=== PATIENT | female | born 1950 | race Hispanic/Latino ===

== ENCOUNTER 2018-01-21 14:00 | Outpatient (CLI) | payer MEDICARE, OTHER ==
--- NOTE | 2018-01-22 07:22 | XRay Report ---
FINAL REPORT EXAM: XR SPINE CERVICAL 2-3V HISTORY: CERVICAL COMPARISONS: None FINDINGS: Three views of the cervical spine There is straightening of the cervical spine with reversal of normal lordosis centered at C5. Retrolisthesis of C5 on C6 is measures approximately 3 millimeters. There is mild intervertebral disc space narrowing at C5-C6 with moderate endplate spondylosis and endplate remodeling. Mild intervertebral disc space narrowing at C4-C5. Remaining vertebral body heights and intervertebral disc spaces are preserved. No acute fracture is suggested. Prevertebral soft tissues are within normal limits. Incomplete evaluation of the lung apices is unremarkable. IMPRESSION: Degenerative straightening, intervertebral disc space narrowing and endplate spondylosis in the cervical spine centered at C5-C6, as detailed above. Consider follow-up MRI. If there is concern for acute fracture, CT is recommended for more sensitive and specific evaluation.
--- NOTE | 2018-01-22 07:24 | XRay Report ---
FINAL REPORT EXAM: XR SPINE THORACIC 3V HISTORY: CERVICAL COMPARISONS: Cervical spine radiographs of the same date FINDINGS: AP and lateral views thoracic spine Thoracic kyphosis is within normal limits. Vertebral body heights intervertebral disc spaces are preserved. No fractures. Partially imaged curvature of the lumbar spine. Incomplete evaluation of the chest is unremarkable. IMPRESSION: Unremarkable thoracic spine radiographs. Partially imaged curvature of the lumbar spine.
== END 2018-01-21 14:01 | disposition home or self-care (01) ==
LOC: XRAY 14:00
PROVIDERS: ATTEND Internal Medicine
DX: M47.892 Other spondylosis, cervical region (principal); M40.294 Other kyphosis, thoracic region; M43.8X6 Other specified deforming dorsopathies, lumbar region
CPT/HCPCS: 72040; 72072

== ENCOUNTER 2018-02-17 10:32 | Outpatient (CLI) | payer MEDICARE, OTHER ==
--- NOTE | 2018-02-17 12:14 | XRay Report ---
CHEST TWO VIEWS: 02/17/18 10:32:00 CLINICAL: Preop cardiovascular clearance. COMPARISON: None FINDINGS: Normal heart and pulmonary vasculature. The lungs are normally expanded and clear.Mild scoliosis and mild degenerative change in the spine. IMPRESSION: No acute cardiopulmonary process.
== END 2018-02-17 10:33 | disposition home or self-care (01) ==
LOC: SPVIMAG 10:32
PROVIDERS: ATTEND Internal Medicine
DX: Z01.818 Encounter for other preprocedural examination (principal); M41.84 Other forms of scoliosis, thoracic region; M47.894 Other spondylosis, thoracic region
CPT/HCPCS: 71046

== ENCOUNTER 2019-06-29 11:59 | Outpatient (CLI) | payer MEDICARE, OTHER ==
[2019-06-29 12:33] LABS: Hematocrit 41.4 % (30.3-42.9); Hemoglobin 13.8 gm/dl (10.1-14.3); Mean Corpuscular HGB Conc 33 % (30-34); Mean Corpuscular Volume 87 fl (79-97); Platelet Count 373 K/mm3 (140-440); Red Blood Count 4.78 M/mm3 (3.65-5.03); Red Cell Distribution Width 13.5 % (13.2-15.2)
[2019-06-29 12:56] LABS: Erythrocyte Sedimentation Rate 9 mm/Hr (0-20)
[2019-06-29 13:01] LABS: Alanine Aminotransferase 17 units/L (7-56); Albumin 4.4 g/dL (3.9-5); BUN/Creatinine Ratio 13; Blood Urea Nitrogen 9 mg/dL (7-17); Calcium 9.3 mg/dL (8.4-10.2); Hemolysis Index 4
== END 2019-06-29 12:00 | disposition home or self-care (01) ==
LOC: LAB 11:59
PROVIDERS: ATTEND Specialist
DX: H05.112 Granuloma of left orbit (principal); H02.402 Unspecified ptosis of left eyelid; G45.9 Transient cerebral ischemic attack, unspecified; Z11.59 Encounter for screening for other viral diseases
CPT/HCPCS: 36415; 80053; 83036; 83519; 83921; 84436; 84443; 84479; 84480; 85027; 85652; 86256; 86592